=== PATIENT | male | born 1965 | race African-American/Black ===

== ENCOUNTER 2019-12-14 13:25 | Inpatient (IN) | payer BC, OTHER ==
[2019-12-14] MEDS ORDERED: Ibuprofen 800 MG TAB ONE (13:39)
[2019-12-14] MEDS ORDERED: Acetaminophen 500 MG TAB ONE (13:39)
[2019-12-14] MEDS ORDERED: Piperacillin/Tazobactam 4.5 GM VIAL ONE (13:44)
[2019-12-14 13:57] LABS: Base Excess-Venous 2.9 mmol/L (-2.0 to 3.0); Bicarbonate (HCO3v) 29.4 mmol/L (22.0-28.0); CO2 Tension (PvCO2) 49.8 mmHg (40.0-50.0); Calcium, Ionized 1.19 mmol/L (See Comments:); Chloride 103 mmol/L (98-107); Hemoglobin - Calc 18.6 g/dL (14.0-18.0); Potassium 4.7 mmol/L (3.5-5.1); Sodium 141 mmol/L (138-145); T. Carbon Dioxide 30.9 mmol/L (22.0-28.0); vO2 Saturation-calc 37.3 % (60.0-85.0)
[2019-12-14 14:18] LABS: Bilirubin Negative (Negative); Blood, Urine Negative (Negative); Clarity Clear (Clear); Glucose, Urine (Dipstick) Normal (Negative); Ketone, Urine Negative (Negative); Leukocyte Negative Leu/uL (Negative); Nitrite Negative (Negative); Protein, Urine (Dipstick) 20 mg/dL (Neg-Trace); Specific Gravity, Urine 1.021 (1.002-1.036); Urobilinogen Normal mg/dL (Less than 2); pH, Urine 7.5 (5.0-9.0)
[2019-12-14 14:19] LABS: Hemoglobin 16.3 g/dL (14.0-18.0); Mean Corpuscular HGB CONC 32.2 g/dL (32.0-36.0); Mean Corpuscular Hemoglobin 29.6 pg (27.0-31.0); Mean Corpuscular Volume 91.9 fL (78.0-98.0); Mean Platelet Volume 9.3 fL (7.4-10.4); Platelet Count 145 thou/uL (130-400); RBC Distribution Width 12.4 % (11.5-14.5); White Blood Cell (WBC) Count 4.8 thou/uL (4.8-10.8)
--- NOTE | 2019-12-14 14:24 | RAD ---
RADIOGRAPH CHEST 1 VIEW: DATE: 12/14/2019 HISTORY: 54-year-old male with cough FINDINGS: There are no airspace densities, pulmonary edema, pneumothorax, or cardiomegaly. The lateral costophr enic angles are sharp. IMPRESSION: No acute cardiopulmonary findings.
[2019-12-14 14:33] LABS: ALT (SGPT) 57 U/L (8-55); AST (SGOT) 48 U/L (5-34); Albumin 4.6 g/dL (3.5-5.0); Alkaline Phosphatase 75 U/L (40-110); Anion Gap 13 mmol/L (10-20); BUN (Urea Nitrogen) 10 mg/dL (8.4-25.7); Bilirubin, Total 0.9 mg/dL (0.2-1.2); Calc. Creatinine Clearance 0 mL/min (70-130); Calcium 9.6 mg/dL (7.8-10.44); Carbon Dioxide 27 mmol/L (22-29); Chloride 102 mmol/L (98-107); Estimated GFR-MDRD 85; Globulin 3.8 g/dL (2.4-3.5); Protein, Total 8.4 g/dL (6.0-8.3); Sodium 138 mmol/L (136-145)
[2019-12-14 14:35] LABS: Glucose 38 mg/dL (70-105)
[2019-12-14 14:45] LABS: Band 29 % (5-11); Lymphocytes 9 % (21-51); MDiff Complete? YES; Monocytes 11 % (0-10); Neutrophil 48 % (42-75); Platelet Morphology Comment Appears Adequate; Polychromasia SLIGHT = 2-3 cells (100X) (0-2/hpf); Reactive Lymphocytes 3 % (0-10)
[2019-12-14 15:31] LABS: SARS-CoV-2 NAA Rapid Test DETECTED (NotDetected)
[2019-12-14 16:00] LABS: Prothrombin Time 13.4 sec (12.0-14.7)
[2019-12-14 16:01] LABS: D-Dimer Test 0.27 *mcg/mL (0.27-0.43)
[2019-12-14 16:13] LABS: Hemoglobin A1c 5.9 % (4.0-6.0)
--- NOTE | 2019-12-14 16:41 | HP ---
CHIEF COMPLAINT: Right-sided weakness and incoordination. HISTORY OF PRESENT ILLNESS: A 54-year-old male with a history of hypertension, had a 3-week history of worsening of his right-sided weakness. He went to his primary care physician a week ago and there was some abnormality in the MRI of the brain , he was diagnosed by his primary care physician as having a demyelinating disease and he was referred for Neurology evaluation. Due to worsening of his weakness, he came to the ER. ER physician checked with Dr. Granado and it appears the MRI film has been reviewed by the Infectious Disease and it may not be demyelinating. Plan for lumbar puncture and an Infectious Disease workup as well as Neurology workup. Neurologist also has been consulted by the ER physician. The patient has no recent travel. No risk for COVID exposure. Please note, rapid test shows he is COVID positive. He says no risk for HIV. He had a temperature of 102.3, and he was tachycardic. Sepsis protocol initiated in the ER and his lactic acid was 1.3. His white count was normal. Blood culture and vancomycin and Zosyn has been scheduled. He has gait impairment, mostly on the right side and he did fall a couple of times during the last 2 days. REVIEW OF SYSTEMS: The patient did not have any fever, but he did have cough the last 2 days in the ER. REVIEW OF SYSTEMS: The patient had a cough for the last 2 to 3 days. No chest pain, productive cough. No orthopnea, PND, lower extremity edema. No nausea, vomiting, abdominal pain, constipation, diarrhea, hematuria, hematochezia. Denies tingling or numbness; however, he has a right-sided weakness. Rest of the review of systems are negative. No rash in the body. No travel. No sick exposure. ALLERGIES: HE HAS NO KNOWN DRUG ALLERGY. PAST MEDICAL HISTORY: Hypertension. MEDICATIONS: Not updated yet. PHYSICAL EXAMINATION: GENERAL: He is afebrile, normotensive. NEUROLOGIC: Exam performed. He has no nystagmus. He is able to speak words clearly. No dysarthria. He does have very mild left facial droop while he is talking. His strength is intact grossly and globally. No sensory impairment. Cardiovascular - RRR, no murmurs. Lungs - Clear. SKIN: No rash noted. PSYCHIATRIC: Appropriate mood and affect. SOCIAL HISTORY: The patient does not smoke or drink alcohol. He lives with his . FAMILY HISTORY: Noncontributory including no neurodegenerative disease runs in the family. IMPRESSION AND PLAN: This is a 54-year-old male, presenting with right-sided weakness and discoordination. Abnormality per MRI imaging. We will get the MRI film from his primary care physician. We will follow with the cultures. At this point, it is unclear whether he is really septic, the differential is broad and maybe another atypical presentation of COVID has to be ascertained. We will follow with the lumbar puncture results. Follow the input from Neurology as well as Infectious Disease. We will get the inflammatory markers, TSH, B12, folate, vitamin D level. He could have vitamin B12 deficiency versus atherosclerosis in the carotid area presenting with symptoms like this versus COVID abnormal presentation. Again, the differential is wide and broad. Follow the clinical course. Covid Positive I defer starting him on steroid as he looks neither infectious nor hypoxic at this time. As neurological evaluation in progress, starting him on Decadron would mislead the diagnosis. Await until Dr. Granado see him tomorrow. Job ID: [id number] [facility]
[2019-12-14 17:19] LABS: Color Of CSF Supernatant COLORLESS (Colorless); Tube # 1; Unspun CSF Color COLORLESS (Colorless)
[2019-12-14 17:37] LABS: CSF, Glucose 41 mg/dl (40-70); CSF, Protein 32 mg/dL (15-40)
[2019-12-14 17:42] LABS: ALT (SGPT) 50 U/L (8-55); AST (SGOT) 43 U/L (5-34); Albumin 3.9 g/dL (3.5-5.0); Alkaline Phosphatase 66 U/L (40-110); Bilirubin, Direct 0.4 mg/dL (0.1-0.3); Bilirubin, Total 0.8 mg/dL (0.2-1.2); Cardiac Risk 2.4 (Less than 4.5); Cholesterol 98 mg/dl (< 200 Desired); HDL Cholesterol 41 mg/dL (>60 Neg Risk); LDL Cholesterol, Calculated 42 mg/dL; Protein, Total 7.1 g/dL (6.0-8.3); Triglycerides 75 mg/dL (Less than 150)
[2019-12-14 18:01] LABS: Vitamin B12 695 pg/mL (211-911)
[2019-12-14 18:06] LABS: HIV (1/2) Antibody/Antigen Non-Reactive (NonReactive); HIV 1/2 INDEX 0.13 S/CO (<1.00)
--- NOTE | 2019-12-14 18:08 | CON ---
NEUROLOGY CONSULTATION DATE OF CONSULTATION: 12/14/2019 REASON FOR CONSULTATION: Right-sided weakness and dysmetria. HISTORY OF PRESENT ILLNESS: A 54-year-old male with history significant for hypertension, presented with 3-week history of worsening right-sided weakness and incoordination in the right upper extremity. He went to his primary care physician a week ago. An MRI of the brain was done, and he was diagnosed with demyelinating disease and was referred to the neurologist for further evaluation. However, the patient came to the ED today because of worsening weakness, and he also has cough and fever of 102.3. He was tested for COVID and the test came back positive. The patient denies any recent travel or recent illness. He denies any nausea, vomiting, headache, chest pain, abdominal pain, but does report cough and generalized weakness, which is more in the right side and without incoordination. He also fell a couple of times since last 2 days because of weakness. Neurology was consulted to further evaluate the abnormal MRI findings and Dr. Granado was also consulted to rule out infectious etiology. REVIEW OF SYSTEMS: All 14 systems was reviewed and was negative except the pertinent positive and negative mentioned in the HPI. ALLERGIES: NO KNOWN DRUG ALLERGIES. PAST MEDICAL HISTORY: Hypertension. MEDICATIONS: Please see updated MAR. SOCIAL HISTORY: The patient is , lives with his . Denies smoking, alcohol, or illegal drug use. FAMILY HISTORY: Significant for demyelinating disease in the family. PHYSICAL EXAMINATION: 150/60 88 16 102.3 GENERAL: Alert, awake male, in no acute distress. CVS: Regular rate and rhythm. CHEST: Clear. ABDOMEN: Soft. NECK: Supple. NEUROLOGIC: Mental status, the patient is alert and oriented to person, place, and time. Speech is clear. Recent and remote memory intact. Motor, muscle tone, and bulk are normal. Strength is 5/5 bilaterally. Cranial nerves 2 through 12 intact. He does have mild right pronator drift. Sensory intact. Gait deferred due to the patient's safety reasons. DATA REVIEWED: Labs reviewed. ASSESSMENT AND PLAN: Mr. Joseph Abad is a 54-year-old male presented with progressive right-sided weakness and incoordination. Recent imaging abnormal. The patient has been tested positive for COVID plus having a fever of 102.3. We will defer high-dose steroids at this point for posiible treatment of demyelinating disease. Need to access the scans first. Case discussed extensively with the ED physician and plan is to proceed with LP with MENTAL HEALTH PROFESSIONAL, immunopath including MBP, Oligoclonal bands, IgG, IgM, IgG index , and the ID workup per Dr. Granado. Neuro checks every 4 hours. Continue home medication. Continue medical management per primary team and pulmonology. Further recommendation will depend upon the results of the testing. Thank you for the consult. Job ID: [id number] [facility]
[2019-12-14 18:15] LABS: CSF Source CSF; Tube # 4
[2019-12-14 18:16] LABS: Clarity Clear (Clear)
[2019-12-14 18:18] LABS: Cell Count Non Hematic 3 %; Lymphocytes 96 %; Segmented Neutrophils 1 %
[2019-12-14] MEDS ORDERED: Ondansetron PF 4 MG/2 ML Vial IVP PRN (18:39)
[2019-12-14] MEDS ORDERED: Acetaminophen 325 MG TAB PO PRN (18:39)
[2019-12-14] MEDS ORDERED: Ondansetron ODT 4 MG TAB SL PRN (18:39)
[2019-12-14] MEDS ORDERED: HYDROcodone/Acetaminophen 5/325 mg Tablet PO PRN ×2 (18:39)
[2019-12-14 21:39] VITALS: BMI 34.4
[2019-12-14] MEDS ORDERED: Dextrose 5% in Water 1,000 ML IV PRN (21:58)
[2019-12-14] MEDS: Dextrose 50% Abboject 50 ML SYRINGE SLOW IVP PRN ×2 (22:00→22:28)
[2019-12-14] MEDS ORDERED: Piperacillin/Tazobactam 4.5 GM in Sodium Chloride 0.9% 100 ML IVPB SCH (22:00)
[2019-12-14 22:09] LABS: CSF Source CSF; Clarity Clear (Clear); Tube # 2
[2019-12-14 22:11] LABS: Cell Count Non Hematic 3 %; Lymphocytes 96 %; Segmented Neutrophils 1 %
[2019-12-14] MEDS ORDERED: Dextrose 5 %-0.45 % NaCl 1,000 ML IV SCH (22:15)
[2019-12-14] MEDS ORDERED: D5 1/2 NS w/20 mEq KCL 1,000 ML ONE (22:17)
[2019-12-15] MEDS: Dextrose 5 %-0.45 % NaCl 1,000 ML IV SCH ×2 (01:50→10:20)
[2019-12-15] MEDS: Dextrose 50% Abboject 50 ML SYRINGE SLOW IVP PRN (02:35)
[2019-12-15] MEDS: Acetaminophen 325 MG TAB PO PRN ×3 (02:53→19:08)
[2019-12-15 06:20] LABS: ALT (SGPT) 48 U/L (8-55); AST (SGOT) 42 U/L (5-34); Albumin 3.9 g/dL (3.5-5.0); Alkaline Phosphatase 61 U/L (40-110); Anion Gap 15 mmol/L (10-20); BUN (Urea Nitrogen) 8 mg/dL (8.4-25.7); Bilirubin, Total 0.9 mg/dL (0.2-1.2); Calc. Creatinine Clearance 161 mL/min (70-130); Calcium 8.6 mg/dL (7.8-10.44); Carbon Dioxide 20 mmol/L (22-29); Chloride 106 mmol/L (98-107); Estimated GFR-MDRD Greater than 90; Globulin 3.1 g/dL (2.4-3.5); Glucose 67 mg/dL (70-105); Potassium 4.1 mmol/L (3.5-5.1); Sodium 137 mmol/L (136-145)
[2019-12-15 06:22] LABS: Hemoglobin 14.4 g/dL (14.0-18.0); Mean Corpuscular HGB CONC 32.3 g/dL (32.0-36.0); Mean Corpuscular Hemoglobin 29.4 pg (27.0-31.0); Mean Platelet Volume 9.3 fL (7.4-10.4); Platelet Count 133 thou/uL (130-400); RBC Distribution Width 12.4 % (11.5-14.5); White Blood Cell (WBC) Count 4.7 thou/uL (4.8-10.8)
[2019-12-15 06:24] LABS: Band 3 % (5-11); Lymphocytes 28 % (21-51); MDiff Complete? YES; Monocytes 12 % (0-10); Neutrophil 54 % (42-75); Reactive Lymphocytes 3 % (0-10)
[2019-12-15] MEDS: Amlodipine 5 mg/Benazepril 20 mg CAP PO SCH ×2 (09:53→21:41)
--- NOTE | 2019-12-15 10:46 | ULT ---
BILATERAL CAROTID DUPLEX ULTRASOUND: HISTORY: CVA TECHNIQUE: Grayscale, color-flow and spectral Doppler ultrasound imaging of the extracranial carotid artery syst ems and vertebral arteries was performed bilaterally. FINDINGS: Right carotid: No significant atherosclerotic disease. Left carotid: Soft plaque in the distal common carotid artery measuring 0.32 cm. Small focus of calci fied plaque in the left internal carotid artery. The peak systolic velocity in the right ICA measures 46.9 cm/s. The peak systolic velocity in the ri ght CCA measures 112.0 cm/s. The peak systolic velocity in the left ICA measures 56.0 cm/s. The peak systolic velocity in the l eft CCA measures 112.0 cm/s. The right IC/CC ration is0.42. The left IC/CC ratio is 0.50. Vertebral flow: Antegrade flow in the right vertebral artery. Flow in the left vertebral artery renu ot be demonstrated . IMPRESSION: 1. No hemodynamically significant stenosis of left or right carotid artery. 2. Non demonstrable flow in the left vertebral artery. Transcribed Date/Time: 12/15/2019 11:06 AM
--- NOTE | 2019-12-15 11:29 | EKG ---
Test Reason : Blood Pressure : / mmHG Vent. Rate : 107 BPM Atrial Rate : 107 BPM P-R Int : 140 ms QRS Dur : 086 ms QT Int : 304 ms P-R-T Axes : 050 -31 050 degrees QTc Int : 405 ms Sinus tachycardia Left axis deviation Cannot rule out Anterior infarct , age undetermined Abnormal ECG Confirmed by DEION BELL MD ([id number]), film and video editor MARÍA HARMAN ([id number]) on 12/15/2019 11:29:21 AM Referred By: Confirmed By:DEION BELL MD
[2019-12-15 13:51] LABS: Ref Lab Test Ordered IGG INDEX; Reference Lab Name LABCORP
[2019-12-15] MEDS: Ibuprofen 200 MG TAB PO PRN (14:48)
--- NOTE | 2019-12-15 15:21 | PDOC.HOSPP ---
- Subjective Encounter Date: 12/15/19 Encounter Time: 15:19 Subjective: Mr. Abad was seen today in follow-up of right sided weakness, and fever. He notes stable weakness in the right side. He denies headache, except a little headache he noted after the LP. He denies cough or shortness of breath. He denies diarrhea. - Objective Vital Signs & Weight: Vital Signs (12 hours) Temp Pulse Resp BP Pulse Ox 12/15/19 10:30 100.9 F H 96 18 153/97 H 97 12/15/19 08:00 100 12/15/19 05:50 100 F H Weight Weight 283 lb I&O: 12/14/19 12/15/19 12/16/19 06:59 06:59 06:59 Intake Total 1150 Output Total 700 Balance 450 Result Diagrams: 12/15/19 05:38 12/15/19 05:38 Additional Labs: Accuchecks 12/15/19 12/15/19 12/15/19 14:41 03:11 02:52 POC Glucose 131 H 106 63 L 12/15/19 12/14/19 12/14/19 00:39 22:54 22:39 POC Glucose 60 L 156 H 64 L 12/14/19 12/14/19 12/14/19 21:58 15:49 14:45 POC Glucose 51 L* 106 45 L* Hospitalist ROS - Medication Medications: Active Medications Generic Name Dose Route Start Last Admin Trade Name Freq PRN Reason Stop Dose Admin Acetaminophen 650 mg 12/14/19 15:54 12/15/19 10:28 Tylenol PO 650 mg Q4H PRN Administration Headache/Fever/Mild Pain (1-3) Amlodipine/Benazepril HCl 1 cap 12/15/19 09:00 12/15/19 09:53 Lotrel 5/20 PO 1 cap BID [place] Administration Dextrose/Water 25 gm 12/14/19 21:58 12/15/19 02:35 Dextrose 50% SLOW IVP 12.5 gm PRN PRN Administration Hypoglycemia Dextrose/Sodium Chloride 1,000 mls @ 65 mls/hr 12/15/19 01:42 12/15/19 10:20 D5 1/2 Ns IV 1,000 mls .[id number] [place] Administration Ibuprofen 400 mg 12/15/19 04:08 12/15/19 14:48 Motrin PO 400 mg Q6H PRN Administration Fever/Mild Pain Sodium Chloride 10 ml 12/15/19 09:00 12/15/19 09:53 Flush - Normal Saline IVF 10 ml Q12HR [place] Administration - Exam Eye: PERRL, anicteric sclera Heart: RRR, no murmur, no gallops, no rubs, normal peripheral pulses Respiratory: CTAB, no wheezes, no rales, no ronchi, normal chest expansion, no tachypnea, normal percussion Gastrointestinal: soft, non-tender, non-distended, normal bowel sounds, no palpable masses, no hepatomegaly, no splenomegaly Extremities: no cyanosis, no edema Musculoskeletal: normal tone, no muscle wasting Musculoskeletal - other findings: + mild drift in the right upper extremity Psychiatric: normal affect, normal behavior, A&O x 3 Hosp A/P (1) Right sided weakness Code(s): R53.1 - WEAKNESS Status: Acute (2) Demyelinating disease of central nervous system Code(s): G37.9 - DEMYELINATING DISEASE OF CENTRAL NERVOUS SYSTEM, UNSPECIFIED Status: Acute (3) COVID-19 virus infection Code(s): U07.1 - COVID-19 Status: Acute (4) Hypertension Code(s): I10 - ESSENTIAL (PRIMARY) HYPERTENSION Status: Chronic (5) Obesity (BMI 30-39.9) Code(s): E66.9 - OBESITY, UNSPECIFIED Status: Chronic - Plan * Demyelinating Disease with right sided weakness- ? etiology- work-up is in progress * Case Discussed with Dr. Granado * HTN- will re-start his home medication and monitor * DM- blood glucose readings have been low- will hold his Glipizide for now and re-start once appropriate * Will add DVT and GI Prophylaxis
--- NOTE | 2019-12-15 20:58 | CON ---
DATE OF CONSULTATION: 12/15/2019 REASON FOR CONSULTATION: Focal neurological symptoms associated with abnormal MRI and now diagnosed COVID infection. HISTORY OF PRESENT ILLNESS: A 54-year-old, history of type 2 diabetes, hypertension, who recently retired and decided to lose some weight, started working out about five months before and then two months prior to admission developed what he describes as a subjective weakness and coordination problems with his right side. He was seen by his personal physician, Dr. Rodas, who ordered MRI, which was carried out outside the main hospitals. This MRI was interpreted as suggesting demyelinating lesions in multiple areas. I do not have a copy of the interpretation of the report. After that, he was referred to a local neurologist and due to the delay in scheduling the appointment, his next available would be only in February. He eventually decided to come to the emergency room. At that time, he started having cough, which he had had for a few days before admission. On arrival, he had fever as well of 102. Other findings on the examination were normal. He did not have any focal weakness noted. Currently, Mr. Abad is awake, alert, oriented, appears in no distress. Denies headaches, visual symptoms, sore throat, odynophagia, or dysphagia. No intermittent cough, but mild. No sputum production. No dyspnea or chest pain. No abdominal pain. Voiding without difficulty. A little bit of loose stool after he was admitted and placed on antimicrobial therapy. No skin lesions. No arthralgias. His cognition appears to be preserved. No delusional thinking process or hallucinations. PAST MEDICAL HISTORY: Type 2 diabetes, obesity, hypertension. PAST SURGICAL HISTORY: Negative. 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 ALLERGIES: HE HAS NO ALLERGIES. MEDICATIONS: He was taking Norvasc and glipizide. He is currently on Lotrel, ibuprofen. The antimicrobials have been discontinued. FAMILY HISTORY: Noncontributory. He does not know where he got the COVID from. PHYSICAL EXAMINATION: VITAL SIGNS: Temperature 101.2, his BP is 150/97, pulse 96, respirations 18, and O2 saturation 97% on room air. GENERAL: He appears in no distress, oriented. SKIN: Normal. There is no lymphadenopathy. HEENT: Ocular movements conjugate. No nystagmus. Sclerae white. Conjunctivae normal. Oral cavity with numerous teeth in very good shape. NECK: Supple. No jugular vein distention. LUNGS: With clear breath sounds. HEART: S1 and S2. Regular rate. No S3 or S4. ABDOMEN: Soft, not distended or tender. No ascites. No bladder distention. No joint inflammatory activity. Strength, very good strength in upper and lower extremities. [id number] with a little bit of dysmetria, but very symmetric right and left side. Plantar responses are flexor. No clonus. Cognitive function is perfectly intact. LABORATORY DATA: Sodium 137, creatinine 0.94, carbon dioxide 20, AST 42, ALT normal, alkaline phosphatase and bilirubin normal. Albumin 3.9, globulin 3.1. CRP was less than 0.5 on admission, white cell count 4.8, hemoglobin 16, platelets 145 with 29% bands and now 3% bands. INR 1.0. Urinalysis was essentially normal. IgG was 1247. CSF of 4th tube with zero RBCs, 46 total nucleated cells with 96% lymphocytes. Glucose was 41 with a serum glucose of 30, and protein was 32. HIV was nonreactive. SARS-CoV RNA PCR was detected. He is pending other assays in the CSF including oligoclonal banding. He did not have a repeat MRI. We do not have the copy of the MRI from outside. Chest x-ray was normal. ASSESSMENT: Chronic demyelinating syndrome with coordination problems and some perceived weakness mostly on the right side. The MRI done in the outside was not available for review and we do not know the extent of the demyelinating lesions described. The report from Dr. Ang states that he had been identified as acute demyelinating encephalomyelitis and now he has COVID positive serology with mild disease course thus far. DISCUSSION: The differential diagnosis includes demyelinating syndrome, which started before the COVID diagnosis. The age of the COVID infection is not yet clear, but it is probably just a few days old. COVID infections had been described in association with acute demyelinating encephalomyelitis, but that is a rare association. His symptoms seem to be too far from the initial COVID diagnosis to establish a reliable association in his case, although it is not completely ruled out. Cryptococcus antigen was negative so that rules out Cryptococcus neoformans disease. HIV was negative as well. The presence of oligoclonal bands would markedly favor the diagnosis of multiple sclerosis rather than ADEM in this patient, so I am waiting with interest for the results of the oligoclonal banding submitted by Dr. Perez. We will submit a COVID antibody test to give us an idea what the age of his COVID infection is. For example, if he had high IgG levels that would suggest a COVID infection that was older than 2 weeks. ADEM is a post viral infection syndrome mostly seen in kids, more than 80% of cases, while similar demyelinating syndromes in adults are more typically consistent with multiple sclerosis. Patients with multiple sclerosis will usually have evolving areas of demyelination in the MRI, so it would be helpful to repeat the MRI, although right now we are going to have to wait because of his COVID diagnosis. ADEM is typically a monophasic illness as opposed to multiple sclerosis. I would not recommend any treatment for COVID at the moment. Job ID: [id number] [facility]
[2019-12-15] MEDS: Enoxaparin Sodium 40 MG/0.4 ML SYRINGE SC SCH (21:41)
[2019-12-15] MEDS: Famotidine 20 MG TAB PO SCH (21:41)
[2019-12-16] MEDS: Acetaminophen 325 MG TAB PO PRN ×2 (05:01→21:03)
[2019-12-16] MEDS: Amlodipine 5 mg/Benazepril 20 mg CAP PO SCH ×3 (08:43→21:03)
[2019-12-16] MEDS: Ibuprofen 200 MG TAB PO PRN (08:43)
[2019-12-16] MEDS: Famotidine 20 MG TAB PO SCH ×2 (08:43→21:02)
[2019-12-16] MEDS: Dextrose 5 %-0.45 % NaCl 1,000 ML IV SCH (13:09)
--- NOTE | 2019-12-16 16:14 | PDOC.HOSPP ---
- Subjective Encounter Date: 12/16/19 Encounter Time: 16:12 Subjective: Mr. Abad was seen today in follow-up of right sided weakness. He does not have any complaints today. In fact he says today is a good day and the weakness is better. - Objective Vital Signs & Weight: Vital Signs (12 hours) Temp Pulse Resp BP Pulse Ox 12/16/19 08:45 100.6 F H 96 16 113/79 95 12/16/19 08:00 95 12/16/19 04:45 102.3 F H 90 18 143/91 H 96 Weight Weight 283 lb I&O: 12/15/19 12/16/19 12/17/19 06:59 06:59 06:59 Intake Total 1150 1350 Output Total 700 1100 Balance 450 250 Result Diagrams: 12/15/19 05:38 12/15/19 05:38 Additional Labs: Accuchecks 12/16/19 12/16/19 12/15/19 08:56 05:06 23:53 POC Glucose 144 H 121 H 130 H 12/15/19 12/15/19 12/15/19 19:16 10:22 05:43 POC Glucose 101 86 79 12/15/19 03:52 POC Glucose 81 Hospitalist ROS - Medication Medications: Active Medications Generic Name Dose Route Start Last Admin Trade Name Freq PRN Reason Stop Dose Admin Acetaminophen 650 mg 12/14/19 15:54 12/16/19 05:01 Tylenol PO 650 mg Q4H PRN Administration Headache/Fever/Mild Pain (1-3) Amlodipine/Benazepril HCl 1 cap 12/15/19 09:00 12/16/19 08:43 Lotrel 5/20 PO 1 cap BID [place] Administration Dextrose/Water 25 gm 12/14/19 21:58 12/15/19 02:35 Dextrose 50% SLOW IVP 12.5 gm PRN PRN Administration Hypoglycemia Enoxaparin Sodium 40 mg 12/15/19 21:00 12/15/19 21:41 Lovenox SC 40 mg 2100 [place] Administration Famotidine 20 mg 12/15/19 21:00 12/16/19 08:43 Pepcid PO 20 mg BID [place] Administration Dextrose/Sodium Chloride 1,000 mls @ 65 mls/hr 12/15/19 01:42 12/16/19 13:09 D5 1/2 Ns IV 1,000 mls .[id number] [place] Administration Ibuprofen 400 mg 12/15/19 04:08 12/16/19 08:43 Motrin PO 400 mg Q6H PRN Administration Fever/Mild Pain Sodium Chloride 10 ml 12/15/19 09:00 12/16/19 08:44 Flush - Normal Saline IVF 10 ml Q12HR [place] Administration - Exam Eye: PERRL, anicteric sclera Heart: RRR, no murmur, no gallops, no rubs, normal peripheral pulses Respiratory: CTAB, no wheezes, no rales, no ronchi, normal chest expansion, no tachypnea Gastrointestinal: soft, non-tender, non-distended, normal bowel sounds, no palpable masses Extremities: no cyanosis, no edema Hosp A/P (1) Right sided weakness Code(s): R53.1 - WEAKNESS Status: Acute (2) Demyelinating disease of central nervous system Code(s): G37.9 - DEMYELINATING DISEASE OF CENTRAL NERVOUS SYSTEM, UNSPECIFIED Status: Acute (3) COVID-19 virus infection Code(s): U07.1 - COVID-19 Status: Acute (4) Hypertension Code(s): I10 - ESSENTIAL (PRIMARY) HYPERTENSION Status: Chronic (5) Obesity (BMI 30-39.9) Code(s): E66.9 - OBESITY, UNSPECIFIED Status: Chronic - Plan * Demyelinating Disease with right sided weakness- ? etiology-still waiting results regarding the Myelin Basic Protein and Oligoclonal bands, and West Nile virus * HTN- blood pressure is stable * DM- blood glucose is stable * COVID infection- stable
[2019-12-16] MEDS: Enoxaparin Sodium 40 MG/0.4 ML SYRINGE SC SCH (21:03)
[2019-12-17] MEDS: Dextrose 5 %-0.45 % NaCl 1,000 ML IV SCH ×2 (01:08→13:08)
[2019-12-17] MEDS: Ibuprofen 200 MG TAB PO PRN (05:09)
[2019-12-17] MEDS: Amlodipine 5 mg/Benazepril 20 mg CAP PO SCH (08:10)
[2019-12-17] MEDS: Acetaminophen 325 MG TAB PO PRN (08:10)
[2019-12-17 09:00] LABS: Anion Gap 16 mmol/L (10-20); BUN (Urea Nitrogen) 9 mg/dL (8.4-25.7); Calc. Creatinine Clearance 161 mL/min (70-130); Calcium 8.8 mg/dL (7.8-10.44); Carbon Dioxide 21 mmol/L (22-29); Chloride 101 mmol/L (98-107); Estimated GFR-MDRD Greater than 90; Glucose 146 mg/dL (70-105); Potassium 4.3 mmol/L (3.5-5.1); Sodium 134 mmol/L (136-145)
[2019-12-17 09:04] LABS: #Lymphocytes 1.5 thou/uL (1.20-3.40); #Monocytes 0.3 thou/uL (0.11-0.59); #Neutrophils 1.9 thou/uL (1.40-6.50); %Basophils 1.3 % (0.0-1.0); %Eosinophils 0.1 % (0.0-10.0); %Lymphocytes 40.3 % (21.0-51.0); %Monocytes 7.9 % (0.0-10.0); %Neutrophils 50.4 % (42.0-75.0); Hemoglobin 15.8 g/dL (14.0-18.0); Mean Corpuscular HGB CONC 33.8 g/dL (32.0-36.0); Mean Corpuscular Hemoglobin 30.4 pg (27.0-31.0); Mean Corpuscular Volume 89.8 fL (78.0-98.0); Mean Platelet Volume 9.4 fL (7.4-10.4); Platelet Count 107 thou/uL (130-400); Platelet Morphology Comment Appears Decreased; RBC Distribution Width 12.1 % (11.5-14.5); RBC Morphology Normal; White Blood Cell (WBC) Count 3.7 thou/uL (4.8-10.8)
[2019-12-17 10:38] LABS: SARS-CoV-2 IgG Ab Non-Reactive (NonReactive); SARS-CoV-2 IgG Index 0.03 S/CO (< 1.40)
[2019-12-17] MEDS: Famotidine 20 MG TAB PO SCH (13:01)
[2019-12-17 13:14] LABS: West Nile Virus IgG Ab - CSF Positive (Negative); West Nile Virus IgM Ab - CSF Negative (Negative)
[2019-12-17 15:02] VITALS: BP 121/78; TEMP 99.3
--- NOTE | 2019-12-17 15:53 | PDOC.HOSPP ---
- Subjective Encounter Date: 12/17/19 Encounter Time: 15:51 Subjective: Mr. Abad was seen today in follow-up of COVID infection and demyelinating disorder. He says he has a little cramping in his hand, but wants to go home. - Objective Vital Signs & Weight: Vital Signs (12 hours) Temp Pulse Resp BP Pulse Ox 12/17/19 15:01 99.3 F 85 16 121/78 99 12/17/19 05:30 101.9 F H 94 18 143/91 H 96 Weight Weight 283 lb I&O: 12/16/19 12/17/19 12/18/19 06:59 06:59 06:59 Intake Total 1350 1980 Output Total 1100 1400 Balance 250 580 Result Diagrams: 12/17/19 08:24 12/17/19 08:24 Additional Labs: Accuchecks 12/17/19 12/16/19 12/16/19 05:21 23:13 21:19 POC Glucose 151 H 134 H 149 H 12/16/19 13:27 POC Glucose 136 H Hospitalist ROS - Medication Medications: Active Medications Generic Name Dose Route Start Last Admin Trade Name Freq PRN Reason Stop Dose Admin Acetaminophen 650 mg 12/14/19 15:54 12/17/19 08:10 Tylenol PO 650 mg Q4H PRN Administration Headache/Fever/Mild Pain (1-3) Amlodipine/Benazepril HCl 1 cap 12/15/19 09:00 12/17/19 08:10 Lotrel 5/20 PO 1 cap BID [place] Administration Dextrose/Water 25 gm 12/14/19 21:58 12/15/19 02:35 Dextrose 50% SLOW IVP 12.5 gm PRN PRN Administration Hypoglycemia Enoxaparin Sodium 40 mg 12/15/19 21:00 12/16/19 21:03 Lovenox SC 40 mg 2100 [place] Administration Famotidine 20 mg 12/15/19 21:00 12/17/19 13:01 Pepcid PO 20 mg BID [place] Administration Dextrose/Sodium Chloride 1,000 mls @ 65 mls/hr 12/15/19 01:42 12/17/19 13:08 D5 1/2 Ns IV 1,000 mls .[id number] [place] Administration Ibuprofen 400 mg 12/15/19 04:08 12/17/19 05:09 Motrin PO 400 mg Q6H PRN Administration Fever/Mild Pain Sodium Chloride 10 ml 12/15/19 09:00 12/17/19 13:02 Flush - Normal Saline IVF 10 ml Q12HR [place] Administration - Exam Eye: PERRL, anicteric sclera Heart: RRR, no murmur, no gallops, no rubs, normal peripheral pulses Respiratory: CTAB, no wheezes, no rales, no ronchi, normal chest expansion Gastrointestinal: soft, non-tender, non-distended, normal bowel sounds, no palpable masses, no hepatomegaly Extremities: no cyanosis, no edema Hosp A/P (1) Right sided weakness Code(s): R53.1 - WEAKNESS Status: Acute (2) Demyelinating disease of central nervous system Code(s): G37.9 - DEMYELINATING DISEASE OF CENTRAL NERVOUS SYSTEM, UNSPECIFIED Status: Acute (3) COVID-19 virus infection Code(s): U07.1 - COVID-19 Status: Acute (4) Hypertension Code(s): I10 - ESSENTIAL (PRIMARY) HYPERTENSION Status: Chronic (5) Obesity (BMI 30-39.9) Code(s): E66.9 - OBESITY, UNSPECIFIED Status: Chronic - Plan * Demyelinating Disease with right sided weakness- ? etiology- Still awaiting final CSF results. * He is clinically stable and can be discharged home awaiting the results * HTN- blood pressure is stable * DM- blood glucose is stable * COVID infection- stable
--- NOTE | 2019-12-18 03:04 | DIS ---
DATE OF ADMISSION: 12/14/2019 DATE OF DISCHARGE: 12/17/2019 PRIMARY CARE PHYSICIAN: Robbie Rodas MD DISCHARGE DISPOSITION: Home. DISCHARGE DIAGNOSES: 1. Cerebral demyelination disorder. 2. Right-sided weakness. 3. COVID-19 positive. 4. Hypertension. 5. Diabetes mellitus. 6. Obesity. DISCHARGE MEDICATIONS: Include; 1. Glipizide 10 mg p.o. b.i.d. 2. Amlodipine/benazepril 5/20 one capsule twice a day. IMAGING DONE DURING THE HOSPITAL STAY: The patient had bilateral carotid Dopplers, which were negative for any hemodynamically significant stenosis. The patient had a lumbar puncture, in which the CSF was clear, colorless. There was one segmented neutrophil per high-power field, 96% were lymphocytes, and rbc's were 5. He had a positive West Nile IgG antibody. IgM West Nile was negative. VDRL was negative. Total protein 32 and glucose is 41. HIV was negative. SARS-CoV-2 IgG antibody was nonreactive. He had a varicella zoster titer, which was pending as well as HSV PCR, which was pending as well as an oligoclonal banding and myelin basic protein, which were pending at the time of discharge. CODE STATUS: Full code. ALLERGIES: NO KNOWN DRUG ALLERGIES. HOSPITAL COURSE: Mr. Abad is a 54-year-old gentleman, who presented to the emergency room with right-sided weakness. This had been a problem, which had been going on for about 3 weeks or more. He had been seen by his primary care physician and had an MRI of the brain, in which there was some evidence of demyelinating disease. He had an appointment set up for a neurologist in the outpatient setting, but his symptoms got worse and he started having fever and for this reason, he came to the ER for evaluation. He was found to be infected with COVID-19 virus, but had no respiratory symptoms. His symptoms with the right-sided weakness predated the COVID-19 infection. ID was consulted and it was felt unlikely that his previous presentation of the right-sided weakness and demyelinating disease was related to the COVID-19 infection. More concerning was a possibility of multiple sclerosis. These tests had been sent out from the ER from the and the myelin basic protein as well as oligoclonal bands were still pending. However, the patient was doing well in observation and was allowed to be released to the hospital. Given that he had no respiratory symptoms, was not requiring any oxygen supplementation and could wait to get the results from his test as an outpatient. He was instructed that this would be after he did the mandatory 14-day self quarantine. The patient was therefore released on 12/17/2019. The patient was instructed that should he start to develop respiratory symptoms and started getting short of breath, high fever that does not break, then he is recommended to come back to the ER. Job ID: [id number]
--- NOTE | 2019-12-18 12:46 | PQF ---
CLINICAL DOCUMENTATION CLARIFICATION FORM: Dear Dr. Martinez Date: 12/18/19 Please exercise your independent, professional judgment in responding to the clarification form. Clinical indicators are provided on the bottom of this form for your review. Please check appropriate box(es): [ X ] Sepsis due to: ___COVID infection Due to: [ ] Device (please specify) [ ] Implant [ ] Graft [ ] Infusion Due to: [ ] Procedure (please specify) [ ] Localized infection without sepsis [ ] SIRS due to non-infectious process (please specify etiology) [ ] with organ dysfunction [ ] without organ dysfunction [ ] Other diagnosis [ ] Unable to determine In addition, please specify: Present on Admission (POA): [ X] Yes [ ] No [ ] Unable to determine For continuity of documentation, please document condition throughout progress notes and discharge summary. Thank You. H&P (GURUSAMY): "SEPSIS PROTOCOL INITIATED" TEMP 102.9 PULSE 109 RR 22 WBC 12/14: 4.7 BANDS 12/13: 29 RISKS: COVID 19 (H&P- GURUSAMY) DIABETES ( TREATMENT: ZOSYN (12/13-12/14) BLOOD CULTURES 12/13 CULTURE OF SPINAL FLUID 12/13 CDS Signature: Samantha Lopez RN Phone #: [phone] Date: 12/18/19 This is a permanent part of the Medical Record [facility]
[2019-12-19 14:14] LABS: Myelin Basic Protein, CSF 5.8 ng/mL (0.0-4.7)
== END 2019-12-17 19:20 | disposition home or self-care (01) | DRG 871 ==
LOC: ERS 13:25 → T4-B 15:45
PROVIDERS: ADMIT Internal Medicine; ATTEND Internal Medicine
PROC: 8E0ZXY6 Isolation (ICD-10-PCS; principal; 2019-12-14)
DX: A41.89 Other specified sepsis (principal); U07.1 COVID-19; G37.9 Demyelinating disease of central nervous system, unspecified; E66.9 Obesity, unspecified; I10 Essential (primary) hypertension; E11.9 Type 2 diabetes mellitus without complications; Z68.34 Body mass index [BMI] 34.0-34.9, adult; Z79.84 Long term (current) use of oral hypoglycemic drugs; Z79.899 Other long term (current) drug therapy
CPT/HCPCS: 36415; 36416; 62270; 71045; 80048; 80053; 80061; 81003; 82306; 82330; 82607; 82746; 82803; 82945; 83036; 83605; 83873; 83916; 84157; 84443; 84484; 85007; 85025; 85027; 85060; 85379; 85610; 85652; 85730; 86140; 86592; 86769; 86788; 86789; 87040; 87070; 87205; 87389; 87529; 87798; 87899; 89051; 93005; 93880; 96360; 96361; 96365; 96366; 96367; J1650; J2543; J3370; J3480; J3490; J7030; U0002